=== PATIENT | female | born 1980 | race African-American/Black ===

== ENCOUNTER 2018-03-30 13:46 | Emergency (ER) | payer SELFPAY ==
[~2018-03-30] VITALS: Ht 172.7 cm; Wt 75.0 kg
[2018-03-30] MEDS ORDERED: ONDANSETRON HCL 4MG/2ML INJ IV STA (14:26)
[2018-03-30] MEDS ORDERED: KETOROLAC 30MG/ML VIAL IV STA (14:26)
[2018-03-30] MEDS ORDERED: SODIUM CHLORIDE 0.9% 1,000 ML IV ONE (14:26)
[2018-03-30 14:48] LABS: BASOPHILS % 0.6 % (0.0-2.0); EOSINOPHILS % 0.1 % (0.0-5.0); HEMATOCRIT. 36.5 % (36.0-48.0); HEMOGLOBIN. 11.6 g/dL (12.0-16.0); LYMPHOCYTES % 9.4 % (20.0-50.0); MEAN CORPUSCULAR HEMOGLOBIN 23.3 pg (28.0-32.0); MEAN CORPUSCULAR VOLUME 73.1 fL (81.0-99.0); MEAN PLATELET VOLUME 9.3 fl (7.4-10.4); MONOCYTES % 2.1 % (2.0-8.0); NEUTROPHILS % 87.8 % (40.0-76.0); PLATELET 237 x1000/uL (130-400); RED BLOOD CELL COUNT 4.99 mill/uL (4.2-5.4); RED CELL DISTRIBUTION WIDTH 21.4 % (11.6-14.6)
[2018-03-30 14:53] LABS: PROTHROMBIN TIME 10.4 sec (9.1-11.1)
[2018-03-30 14:55] LABS: CHLORIDE 101 mEq/L (98-107)
[2018-03-30 14:59] LABS: HCG SCREEN NEGATIVE
[2018-03-30 15:00] LABS: ETHANOL BLOOD < 10 mg/dL
[2018-03-30] MEDS ORDERED: MORPHINE SULFATE 4 MG/ML CPJ (NOT FOR IM USE) IV ONE (16:15)
[2018-03-30 19:12] VITALS: BP 136/86
== END 2018-03-30 19:17 | disposition home or self-care (01) ==
LOC: ER 13:46
DX: N30.90 Cystitis, unspecified without hematuria (principal); D64.9 Anemia, unspecified; Z98.890 Other specified postprocedural states; Z98.84 Bariatric surgery status
CPT/HCPCS: 36415; 74176; 80053; 83690; 84703; 85025; 85610; 96361; 96374; 96375; 99285; G0482; J1885; J2270; J2405; J7030; 80305